=== PATIENT | female | born 1955 | race Caucasian/White ===

== ENCOUNTER → 2017-08-27 17:05 | Outpatient (CLI) | payer OTHER, SELFPAY ==
--- NOTE | 2017-08-27 17:05 | DT_ITS ---
This patient was seen during an EMR downtime August 25, 2017 - September 01, 2017. This patient may have a combination of paper and electronic documentation or all paper documentation. All documentation is viewable within the e-chart portion of [facility] for each patient visit.
[2017-08-27 18:35] LABS: ALB/GLOB Ratio 0.7 RATIO (0.9-2.4); AST(SGOT) 40 U/L (15-37); Alanine Aminotransfer ALT/SGPT 22 U/L (13-56); Albumin, Serum 3.3 g/dL (3.2-5.0); Alkaline Phosphatase 58 U/L (45-117); Anion Gap 10 (5-15); BUN 15 mg/dL (7-18); BUN/Creat Ratio 16.5 RATIO (10-20); Calcium,Total 8.9 mg/dL (8.5-10.1); Chloride 101 mmol/L (98-107); Creatinine, Serum 0.91 mg/dL (0.55-1.02); EST Glomerular Filtration Rate 67 mL/min (>60); Est Glom Filt Rate - Afr Amer 81 mL/min (>60); Globulin 4.6 g/dL (2.2-4.2); Glucose 85 mg/dL (74-106); Protein, Total 7.9 g/dL (6.4-8.2); Sodium Level 137 mmol/L (136-145)
[2017-08-31 19:33] LABS: Hematocrit 39.4 % (37-47); Hemoglobin 12.8 g/dl (12.0-15.0); Lymphocyte % 21.4 % (19-41); Mean Corp Hgb Conc 32.5 g/gl (32-36); Mean Corpuscular Hgb 28.5 pg (27.0-32.0); Mean Corpuscular Volume 87.8 fL (81-99); Neutrophil % 61.5 % (47-70); POSITIVE COUNT NO; POSITIVE DIFFERENTIAL NO; POSITIVE MORPHOLOGY NO; Platelet Count 279 K/mm3 (150-450); RBC Distribution Width CV 13.8 % (11.6-14.6); Red Blood Count 4.49 M/mm3 (4.2-5.4); White Blood Count 8.5 K/mm3 (4.4-11.0)
[2017-08-31 19:34] LABS: Absolute Lymphocyte Count 1.81 X10^3/ul (0.83-4.51); Absolute Neutrophil Count 5.2 X10^3/uL (2.0-7.7); Basophil% 0.6 % (0-1); Monocyte% 9.4 % (0-10)
== END ==
PROVIDERS: Family Provider Family Medicine; PCP Family Medicine; Visit Provider Internal Medicine Rheumatology
DX: L40.59 Other psoriatic arthropathy (principal); L40.8 Other psoriasis; M17.0 Bilateral primary osteoarthritis of knee; M21.40 Flat foot [pes planus] (acquired), unspecified foot; I10 Essential (primary) hypertension; Z79.899 Other long term (current) drug therapy
CPT/HCPCS: 36415; 80053; 85025

== ENCOUNTER → 2017-08-29 15:10 | Outpatient (CLI) | payer OTHER, SELFPAY ==
--- NOTE | 2017-08-29 15:10 | DT_ITS ---
This patient was seen during an EMR downtime August 25, 2017 - September 01, 2017. This patient may have a combination of paper and electronic documentation or all paper documentation. All documentation is viewable within the e-chart portion of [facility] for each patient visit.
== END ==
PROVIDERS: Family Provider Family Medicine; PCP Family Medicine; Visit Provider Internal Medicine Rheumatology
DX: L40.59 Other psoriatic arthropathy (principal); Z79.899 Other long term (current) drug therapy; L40.8 Other psoriasis; M17.0 Bilateral primary osteoarthritis of knee; M21.40 Flat foot [pes planus] (acquired), unspecified foot; I10 Essential (primary) hypertension
CPT/HCPCS: 86480

== ENCOUNTER → 2017-11-06 08:57 | Outpatient (CLI) | payer OTHER, SELFPAY ==
[2017-11-06 10:16] LABS: Absolute Neutrophil Count 6.7 X10^3/uL (2.0-7.7); Basophil# 0.04 X10^3/uL; Basophil% 0.4 % (0-1); Eosinophil# 0.16 X10^3/uL; Eosinophils% 1.7 % (0-5); Hematocrit 45.6 % (37-47); Hemoglobin 14.7 g/dl (12.0-15.0); Lymphocyte % 18.3 % (19-41); Mean Corp Hgb Conc 32.2 g/gl (32-36); Mean Corpuscular Hgb 29.4 pg (27.0-32.0); Mean Corpuscular Volume 91.2 fL (81-99); Monocyte# 0.67 X10^3/uL; Monocyte% 7.2 % (0-10); Neutrophil # 6.71 X10^3/uL (2.7-7.7); Neutrophil % 72.2 % (47-70); Platelet Count 220 K/mm3 (150-450); RBC Distribution Width CV 15.9 % (11.6-14.6); RBC Distribution Width SD 52.9 fl (35.1-43.9); White Blood Count 9.3 K/mm3 (4.4-11.0)
[2017-11-06 10:18] LABS: POSITIVE COUNT NO; POSITIVE DIFFERENTIAL NO; POSITIVE MORPHOLOGY NO
[2017-11-06 10:23] LABS: AST(SGOT) 16 U/L (15-37); Alanine Aminotransfer ALT/SGPT 29 U/L (13-56); Albumin, Serum 3.9 g/dL (3.2-5.0); Alkaline Phosphatase 65 U/L (45-117); Anion Gap 8 (5-15); BUN 22 mg/dL (7-18); BUN/Creat Ratio 23.2 RATIO (10-20); Calcium,Total 9.3 mg/dL (8.5-10.1); Chloride 102 mmol/L (98-107); Creatinine, Serum 0.95 mg/dL (0.55-1.02); EST Glomerular Filtration Rate 63 mL/min (>60); Est Glom Filt Rate - Afr Amer 77 mL/min (>60); Globulin 4.1 g/dL (2.2-4.2); Glucose 90 mg/dL (74-106); Potassium 3.9 mmol/L (3.5-5.1); Sodium Level 138 mmol/L (136-145)
== END ==
PROVIDERS: Family Provider Family Medicine; PCP Family Medicine; Visit Provider Internal Medicine Rheumatology
DX: L40.59 Other psoriatic arthropathy (principal); L40.8 Other psoriasis; M17.0 Bilateral primary osteoarthritis of knee; M21.40 Flat foot [pes planus] (acquired), unspecified foot; I10 Essential (primary) hypertension; Z79.899 Other long term (current) drug therapy
CPT/HCPCS: 36415; 80053; 85025

== ENCOUNTER → 2018-01-08 12:53 | Outpatient (CLI) | payer OTHER, SELFPAY ==
--- NOTE | 2018-01-08 12:54 | CT_ITS ---
STUDY: CT CHEST/THORAX WITHOUT CONTRAST REASON FOR EXAM: Female, 62 years old. Lung nodule follow-up. RADIATION DOSAGE (If Supplied By Facility): CTDIvol = ( 19.77 ) mGy, DLP = ( 706.29 ) mGycm TECHNIQUE: Transaxial imaging was performed without the administration of intravenous contrast material. Multiplanar coronal and sagittal images were reformatted. # of Images: 821 Individualized dose optimization techniques were used for this CT. COMPARISON: CT chest/thorax without contrast March 27, 2017. FINDINGS: Postsurgical changes are now seen in the lateral left apex, including a radiodense suture line in the anterolateral left upper lobe. The spiculated, pleural-based mass noted previously in that area is no longer present. Lobulated and mildly spiculated posterior lateral right upper lobe mass has increased to 1.65 x 1.75 x 1.6 cm. Spiculated mass in the superior margin of the right middle lobe also has increased to 1.75 x 1.7 x 0.75 cm. There is 0.75 cm diameter slightly spiculated nodule also now seen abutting the medial pleural surface of the right middle lobe on series 4 image 60, series 602 image 121. In the posterior medial right upper lobe (series 4 image 57, series 602 image 186) a pleural-based 10 x 6 x 8.5 mm lesion with a coarse posterior calcification is stable. A 5 x 6 x 12.5 mm mm spiculated nodule in the posterior medial right lower lobe on series 4 image 65, series 602 images 192-198 is grossly stable. Immediately adjacent to this are spiculated 7 and 5 mm nodules that are new. Inferior to these is a new 8 x 3.5 mm mildly spiculated nodule in the posterior medial periphery of the right lower lobe just touching the posterior pleural surface. There is no demonstrated pleural abnormality. Normal heart size. There are calcifications of the coronary arteries. Moderately defined, grossly stable 2.75 x 1.25 x 1.6 cm structure anterior to the left mainstem bronchus (series 2 image 44, series 602 image 151) is a density of less than 5 Hounsfield units, suggesting this is a pericardial reflection rather than adenopathy. A second pericardial reflection is seen posterior to the ascending aorta and medial to the superior vena cava in the precarinal tissues. There is no mediastinal adenopathy. Normal hilar regions. Normal unenhanced pulmonary arteries. There is stable mild atherosclerotic calcification of the aortic arch. There are multi-level degenerative changes of the thoracic spine. There is a 1.8 cm rim calcified gallstone. No mural thickening of the gallbladder nor pericholecystic fluid to indicate acute cholecystitis. CT/Chest without Contrast IMPRESSION: 1. Post surgical changes now seen in the lateral left apex. The pleural-based, spiculated mass noted previously in that area is no longer present. 2. The 2 dominant lesions seen previously in the right lung have increased in size, as described above. Additional nodular lesions are also seen in the mid basilar posterior right lower lobe, as described, consistent with new foci of malignancy. 3. No overt adenopathy. There are stable fluid density structures in the precarinal and proximal peribronchial tissues that are presumably pericardial reflections. 4. Gallstone again noted. No CT sign of acute cholecystitis. Electronically Signed: Roger Estrada MD at 16:32 EDT , Service support ,
== END ==
PROVIDERS: Family Provider Family Medicine; PCP Family Medicine; Referring Provider Internal Medicine Critical Care Medicine; Visit Provider Internal Medicine Critical Care Medicine
DX: R91.8 Other nonspecific abnormal finding of lung field (principal)
CPT/HCPCS: 71250

== ENCOUNTER → 2019-01-07 | Outpatient (CLI) | payer OTHER, SELFPAY ==
--- NOTE | 2019-01-07 10:44 | CT_ITS ---
STUDY: CT CHEST WITHOUT CONTRAST REASON FOR EXAM: Female, 63 years old. Lung nodule follow-up RADIATION DOSAGE (If Supplied By Facility): CTDIvol = ( 19.10 ) mGy, DLP = ( 677.76 ) mGycm TECHNIQUE: Transaxial imaging was performed without the administration of intravenous contrast material. Multiplanar coronal and sagittal images were reformatted. Individualized dose optimization techniques were used for this CT. COMPARISON: 01/08/2018 FINDINGS: Previous described fibrotic scarring in the left upper lobe has become less conspicuous and more organized since the previous study. There is nonspecific pleural thickening in both hemithoraces. Previous described 1.6 x 1.7 x 1.6 cm nodule in the right upper lobe now measures only 1.3 x 1.1 x 1.2 cm. A right middle lobe nodule measuring 1.7 x 1.7 x 0.7 cm has decreased to 1.06 x 1.5 x 0.7 cm. Noncalcified nodules in the medial aspect of the right lower lobe also decreased in size and now measure less than 5 mm. There is no new acute pulmonary process, no new suspicious noncalcified mass or nodule. Soft tissue windows show normal-appearing thyroid gland. There are scattered subcentimeter axillary and mediastinal lymph nodes. Calcified coronary vessels noted. No pleural or pericardial effusions. There are multi-level degenerative changes of the thoracic spine. Limited cuts through the upper abdomen multiple gallstones. CT/Chest without Contrast IMPRESSION: Previously described noncalcified nodules in both lung garcia has significantly decreased in size since the previous study suggesting positive response to therapy. No new suspicious noncalcified mass or nodule, organized infiltrate or effusion. Stable scattered axillary mediastinal lymph nodes Calcified coronary vessels Degenerative bony changes Gallstones Electronically Signed: Roger Wallace MD at 10:57 EDT , Service support ,
--- NOTE | 2019-01-07 16:03 | PFTCOMP_ITS ---
COMPLETE PULMONARY FUNCTION TEST INTERPRETATION Brief HPI: Patient is a 63 year old female, currently under the care of myself, who presents to [facility] for complete pulmonary function tests secondary to diagnosis of lung nodule. Respiratory therapist reports good effort and reproducible results. Interpretation: Forced expiration spirometry shows no large airways obstructive ventilatory defect with an FEV1 of 86% predicted. There is no significant bronchodilator response by strict ATS criteria. Spirograms are of good quality and plateau normally. The respiratory flow volume loop shows a normal pattern. Lung volumes by body plethysmography show a normal total lung capacity at 4.59 L, 94% predicted. All other lung volumes are within normal limits. Diffusion capacity by carbon monoxide is normal at 82% predicted. The airway resistance is normal. No previous pulmonary function tests were available for review. Impression: These pulmonary function tests are within normal limits.
== END | disposition home or self-care (01) ==
LOC: PSN 09:56
PROVIDERS: Family Provider Family Medicine; PCP Family Medicine; Referring Provider Internal Medicine Critical Care Medicine; Visit Provider Internal Medicine Critical Care Medicine
DX: M25.50 Pain in unspecified joint (principal); R91.1 Solitary pulmonary nodule; Z98.890 Other specified postprocedural states
CPT/HCPCS: 71250; 94060; 94726; 94729

== ENCOUNTER → 2019-08-24 16:18 | Outpatient (CLI) | payer OTHER, SELFPAY ==
[2019-01-14 05:59] VITALS: BMI 42.0
[2019-08-27 16:08] LABS: Red Blood Cell Count Test/G6PD 4.95 x10E6/uL (3.77-5.28)
[2019-08-28 14:38] LABS: G6PD Quant Test 283 (146-376)
== END ==
PROVIDERS: PCP Family Medicine; Referring Provider Internal Medicine Rheumatology; Visit Provider Internal Medicine Rheumatology
DX: L40.59 Other psoriatic arthropathy (principal); L40.8 Other psoriasis; M17.0 Bilateral primary osteoarthritis of knee; M21.40 Flat foot [pes planus] (acquired), unspecified foot; M50.30 Other cervical disc degeneration, unspecified cervical region; I10 Essential (primary) hypertension; I25.10 Atherosclerotic heart disease of native coronary artery without angina pectoris; Z79.899 Other long term (current) drug therapy
CPT/HCPCS: 36415; 82955

== ENCOUNTER → 2020-06-27 15:18 | Outpatient (CLI) | payer OTHER, SELFPAY ==
[2019-01-14 05:59] VITALS: BMI 42.0
[2020-06-27 18:08] LABS: Absolute Neutrophil Count 4.7 X10^3/uL (2.0-7.7); Basophil# 0.05 X10^3/uL; Basophil% 0.7 % (0-1); Eosinophil# 0.26 X10^3/uL; Eosinophils% 3.4 % (0-5); Hematocrit 38.9 % (37-47); Hemoglobin 12.1 g/dL (12.0-15.0); Lymphocyte % 23.5 % (19-41); Mean Corp Hgb Conc 31.1 g/dL (32-36); Mean Corpuscular Volume 86.8 fL (81-99); Mean Platelet Vol. 11.4 fl (6.2-12.0); Monocyte# 0.82 X10^3/uL; Monocyte% 10.7 % (0-10); NRBC Flagged by Analyzer 0 % (0-5); Neutrophil # 4.71 X10^3/uL (2.7-7.7); Neutrophil % 61.6 % (47-70); Platelet Count 120 K/mm3 (150-450); RBC Distribution Width CV 13.1 % (11.6-14.6); Red Blood Count 4.48 M/mm3 (4.2-5.4); White Blood Count 7.7 K/mm3 (4.4-11.0)
[2020-06-27 18:30] LABS: ALB/GLOB Ratio 0.7 RATIO (0.9-2.4); AST(SGOT) 12 U/L (15-37); Alanine Aminotransfer ALT/SGPT 16 U/L (13-56); Albumin, Serum 3.2 g/dL (3.2-5.0); Alkaline Phosphatase 60 U/L (45-117); Anion Gap 5 (5-15); BUN 15 mg/dL (7-18); BUN/Creat Ratio 19.9 RATIO (10-20); Calcium,Total 9.4 mg/dL (8.5-10.1); Chloride 103 mmol/L (98-107); Creatinine, Serum 0.75 mg/dL (0.55-1.02); EST Glomerular Filtration Rate 82 mL/min (>60); Est Glom Filt Rate - Afr Amer 99 mL/min (>60); Globulin 4.8 g/dL (2.2-4.2); Glucose 80 mg/dL (74-106); Potassium 3.2 mmol/L (3.5-5.1); Sodium Level 136 mmol/L (136-145)
[2020-07-03 20:07] LABS: QNTFERON TB Mitogen Value > 10.00 IU/mL (.); QNTFERON TB Nil Value 0.13 IU/mL (.); QNTFERON TB1+ Ag Value 0.14 IU/mL (.); QNTFERON TB2+ Ag Value 0.13 IU/mL (.)
[2020-07-03 21:09] LABS: QNTIFERON TB Positive Criteria Negative (Negative)
== END ==
PROVIDERS: PCP Family Medicine; Referring Provider Internal Medicine Rheumatology; Visit Provider Internal Medicine Rheumatology
DX: L40.59 Other psoriatic arthropathy (principal); L40.8 Other psoriasis; M17.0 Bilateral primary osteoarthritis of knee; M21.40 Flat foot [pes planus] (acquired), unspecified foot; M50.30 Other cervical disc degeneration, unspecified cervical region; I10 Essential (primary) hypertension; I25.10 Atherosclerotic heart disease of native coronary artery without angina pectoris; Z79.899 Other long term (current) drug therapy
CPT/HCPCS: 36415; 80053; 85025; 86480

== ENCOUNTER → 2021-12-26 | Outpatient (CLI) | payer OTHER, SELFPAY ==
[2021-12-26 10:17] LABS: Absolute Lymphocyte Count 1.43 X10^3/uL (0.83-4.51); Absolute Neutrophil Count 4.6 X10^3/uL (2.0-7.7); Basophil# 0.05 X10^3/uL; Basophil% 0.7 % (0-1); Eosinophil# 0.33 X10^3/uL; Eosinophils% 4.6 % (0-5); Hematocrit 43.3 % (37-47); Hemoglobin 13.9 g/dL (12.0-15.0); Lymphocyte # 1.43 X10^3/ul (0.83-4.51); Lymphocyte % 20.1 % (19-41); Mean Corp Hgb Conc 32.1 g/dL (32-36); Mean Corpuscular Hgb 29.8 pg (27.0-32.0); Mean Corpuscular Volume 92.9 fL (81-99); Mean Platelet Vol. 13.5 fl (6.2-12.0); Monocyte# 0.72 X10^3/uL; Monocyte% 10.1 % (0-10); NRBC Flagged by Analyzer 0 % (0-5); Neutrophil # 4.58 X10^3/uL (2.7-7.7); Neutrophil % 64.2 % (47-70); Platelet Count 135 K/mm3 (150-450); RBC Distribution Width CV 13.1 % (11.6-14.6); RBC Distribution Width SD 44.6 fl (35.1-43.9); Red Blood Count 4.66 M/mm3 (4.2-5.4); White Blood Count 7.1 K/mm3 (4.4-11.0)
[2021-12-26 10:58] LABS: ALB/GLOB Ratio 0.8 RATIO (0.9-2.4); AST(SGOT) 30 U/L (15-37); Alanine Aminotransfer ALT/SGPT 43 U/L (13-56); Albumin, Serum 3.4 g/dL (3.2-5.0); Alkaline Phosphatase 57 U/L (45-117); Anion Gap 7 (5-15); BUN 13 mg/dL (7-18); BUN/Creat Ratio 14.4 RATIO (10-20); Calcium,Total 9.4 mg/dL (8.5-10.1); Chloride 107 mmol/L (98-107); EST Glomerular Filtration Rate 66 mL/min (>60); Est Glom Filt Rate - Afr Amer 80 mL/min (>60); Glucose 94 mg/dL (74-106); Potassium 3.5 mmol/L (3.5-5.1); Protein, Total 7.4 g/dL (6.4-8.2); Sodium Level 140 mmol/L (136-145)
== END | disposition home or self-care (01) ==
LOC: MTLAB 07:45
PROVIDERS: Referring Provider Internal Medicine Rheumatology; Visit Provider Internal Medicine Rheumatology
DX: L40.59 Other psoriatic arthropathy (principal); L40.8 Other psoriasis; M17.0 Bilateral primary osteoarthritis of knee; M21.40 Flat foot [pes planus] (acquired), unspecified foot; M50.30 Other cervical disc degeneration, unspecified cervical region; I10 Essential (primary) hypertension; I25.10 Atherosclerotic heart disease of native coronary artery without angina pectoris; Z79.899 Other long term (current) drug therapy
CPT/HCPCS: 36415; 80053; 85025

== ENCOUNTER → 2022-06-03 | Outpatient (CLI) | payer OTHER, SELFPAY | END | disposition home or self-care (01) | PROVIDERS: Visit Provider Otolaryngology | DX: J32.8 Other chronic sinusitis (principal) | CPT/HCPCS: 87070; 87205 ==

== ENCOUNTER → 2023-05-29 | Outpatient (CLI) | payer OTHER, SELFPAY ==
--- OUTSIDE RECORDS SUMMARY | 2023-05-29 19:46 | XMS RPT_ITS | CCD ---
Author Name Unknown Address [address] [place] [address] Organization [facility] Care Team Providers Care Control Clerk Name Role Phone Zenia Guzman Unavailable Unavailable Ian Spence Unavailable Jesus DIRECTOR SUPPLIER QUALITY, Zenia Mariah Unavailable Unavaila ble Jesus DIRECTOR SUPPLIER QUALITY, Zenia Mariah Unavailable Unavaila ble NIRAULA, BALJEET Unavailable Unavailable PROVIDER, UNKNOWN Unavailable Unavailable Dowd, Hamlet Unavailable Unavailable NIRAULA, BALJEET Unavailable Unavailable PROVIDER, UNKNOWN Unavailable Unavailable Nile Hamlet Unavailable Unavailable Nile Hamlet Unavailable Unavailable PROVIDER, UNKNOWN Unavailable Unavailable Nile Hamlet Unavailable Unavailable PROVIDER, UNKNOWN Unavailable Unavailable NIRAULA, BALJEET Unavailable Unavailable Nile Hamlet Unavailable Unavailable PROVIDER, UNKNOWN Unavailable Unavailable NIRAULA, BALJEET Unavailable Unavailable NIRAULA, BALJEET Unavailable Unavailable Nile Hamlet Unavailable Unavailable PROVIDER, UNKNOWN Unavailable Unavailable Nile Hamlet Unavailable Unavailable PROVIDER, UNKNOWN Unavailable Unavailable DANEIL EARL L. Unavailable Unavailable Nile Hamlet Unavailable Unavailable PROVIDER, UNKNOWN Unavailable Unavailable DANIEL EARL LShante Unavailable Unavailable YorkSharleneZenia L Unavailable Unavailable Jesus DIRECTOR SUPPLIER QUALITY, Zenia Mariah Unavailable Unavaila ble Yensho DIRECTOR SUPPLIER QUALITY, Lorena A Unavailable Unavailab le Jesus DIRECTOR SUPPLIER QUALITY, Zenia Mariah Unavailable Unavaila ble TIERRA BYERS MD Attending Unavailable EMMANUEL SARGENT PA-C Primary Care Unavailable TIERRA BYERS MD Attending Unavailable EMMANUEL SARGENT PA-C Primary Care Unavailable MAKI CAZARES Admitting Unavailable MAKI CAZARES Attending Unavailable MAKI CAZARES Primary Care Unavailable SARGENT, EMMANUEL PAC Consulting Unavailable SARGENT, EMMANUEL PAC Referring Unavailable PROVIDER, UNKNOWN Consulting Unavailable TIERRA BYERS MD Admitting Unavailable TIERRA BYERS MD Attending Unavailable TIERRA BYERS MD Primary Care Unavailable SARGENT, EMMANUEL PAC Consulting Unavailable PROVIDER, UNKNOWN Consulting Unavailable TIERRA BYERS MD Admitting Unavailable TIERRA BYERS MD Attending Unavailable TIERRA BYERS MD Primary Care Unavailable SARGENT, EMMANUEL PAC Consulting Unavailable PROVIDER, UNKNOWN Consulting Unavailable SARGENT, EMMANUEL PAC Referring Unavailable SARGENT, EMMANUEL PAC Consulting Unavailable ANETA ESPINAL MD Admitting Unavailable ANETA ESPINAL MD Attending Unavailable ANETA ESPINAL MD Primary Care Unavailable PROVIDER, UNKNOWN Consulting Unavailable Sargent JUNE, Emmanuel J Unavailable [phone] Jake HART, Dr. Eran Koo Unavailable Jordy HART, Dr. Sosa Unavailable Sandoval HART, Dr. Fuentes Unavailable [phone] Rolnad HART, Dr. Ata Denis Unavailable [phone] Corey HART, Lg Aaron Unavailable Jennifer GREENFIELD, Jennifer Unavailable Unavailable Gogopam (scribe), Hemanta Unavailable Unavaila ble Matthew DIRECTOR SUPPLIER QUALITY, Radha Unavailable Unavailable Nile HART, Hamlet Denis Unavailable Saud WATKINS, Gilberto Dupont Unavailable Saud ZEPEDA, Eva L Unavailable Unavail able Mary Ellen Law MA Unavailable Unavailable Oren DIRECTOR SUPPLIER QUALITY, Betty Unavailable Unavailable Em ZEPEDA, Sharmin Denis Unavailable Unavaila ble Marthey DIRECTOR SUPPLIER QUALITY, Teresa Unavailable Unavailable Goldberg DIRECTOR SUPPLIER QUALITY, Selena Unavailable Unavailable Mutersbaugh DIRECTOR SUPPLIER QUALITY, Krissy K Unavailable Unavai dana Mackay PA-C, Susan J Unavailable Timbo (Scribe), Estevan Unavailable Unavailab le Meg DIRECTOR SUPPLIER QUALITY, Octavia Pete Unavailable Unavailab le Robeline DIRECTOR SUPPLIER QUALITY, Alysha Unavailable Unavailab le Wengerwhitley DIRECTOR SUPPLIER QUALITY, [place] Unavailable Unavailabl e Santhosh DIRECTOR SUPPLIER QUALITY, Elizabeth Rao Unavailable Unavaila ble Zaugg DIRECTOR SUPPLIER QUALITY, Zenia Unavailable Unavailable Unavailable Unavailable Allergies Allergy Classification Reported Allergen(s) Allergy Type Date of Onset Reaction(s) Facility (17 sources) penicillin v drug allergy 7 when she was young, anaphylaxis [facility] Work Phone: (1 source) Penicillin Drug Allergy [facility] Repository (1 source) STATINS ([facility]-COA REDUCTASE INHIBITORS) Drug allergy (disorder) [facility] Repository (2 sources) [facility] (2 sources) Penicillin V Drug Allergy Rash, Swelling [facility]; [facility] Medications Current Medications Medication Drug Class(es) Dates Sig (Normalized) Sig (Original) amiodarone hydrochloride 200 mg oral tablet (2 sources) Antiarrhythmic amiodarone 200 mg tablet ; twice daily with meals (200 mg) amLODIPine 10 mg oral tablet (2 sources) Dihydropyridine [facility] amLODIPine 10 mg tablet ; daily (10 mg) calcium citrate 950 mg oral tablet (2 sources) Calcium Citrate 950 MG Oral Tablet ; (950 MG) folic acid 1 mg oral tablet (13 sources) Start: 04-03-2023 folic acid 1 mg tablet ; 2 (two) Tablet qd for 0 days Quantity: 180 {Tablet} Refills: 0 Ordered: 03-Apr-2023 JUNE Sargent Start: 03-Apr-2023 Comments: Mail order. Completed/Discontinued Medications Medication Drug Class(es) Dates Sig (Normalized) Sig (Original) acetaminophen 325 mg / HYDROcodone bitartrate 5 mg oral tablet (2 sources) Opioid Agonist take 1 tablet by sam th every four hours as needed HYDROCODONE-ACETAMI NOPHEN, 5-325MG (Oral Tablet) ; 1 every four hours as needed (5-325 MG) Status: Inactive Comments: Medication taken as needed. Problems Active Problems Problem Classification Problem Date Documented Date Episodic/Chronic Acute bronchitis (8 sources) Acute bronchitis; Translations: [Acute bronchitis, unspecified] 04-09-2018 Episodic Administrative/social admission (4 sources) Repeated prescription; Translations: [Encounter for issue of repeat prescription] 08-21-2018 Episodic Allergic reactions (3 sources) Allergy status to penicillin; Translations: [Allergy status to penicillin] Onset: 05-23-2017 Episodic Cardiac dysrhythmias (13 sources) Unspecified atrial fibrillation; Translations: [Atrial fibrillation] Onset: 06-27-2017 08-27-2018 Chronic Cardiac dysrhythmias (6 sources) Tachycardia; Translations: [Tachycardia, unspecified] 10-18-2022 Episodic Coronary atherosclerosis and other heart disease (2 sources) Atherosclerotic heart disease of [place] coronary artery without angina pectoris; Translations: [Athscl heart disease of [place] coronary artery w/o ang pctrs] Onset: 05-23-2017 Chronic Disorders of lipid metabolism (20 sources) Hyperlipidemia; Translations: [Hyperlipidemia, unspecified] 10-18-2022 Chronic Past or Other Problems Problem Classification Problem Date Documented Date Episodic/Chronic Unclassified (2 sources) Family history of other diseases of the respiratory system; Translations: [Family history of other diseases of the respiratory system] Onset: 05-23-2017 Episodic Unclassified (2 sources) Rash - The onset of the rash has been sudden and has been occurring in a persistent pattern for 6 days. The course has been decreasing (Patient reports that her eye feels better today). The rash is characterized as red and raised above the skin. The rash was first seen on the scalp and the face. It spread to the face (over right forehead and eye). There has been associated pain and erythema, while there has been no associated itching or edema. There has been associated fatigue, while there has been no chills, fever, itching or mucous membrane lesions. Note for Rash : Patient went to the ER on Friday and was diagnosed with shingles. She has been taking acyclovir and following up with her conservation specialist. The conservation specialist suggested that she may need an extension on her antiviral treatment. 11-08-2022 Unclassified (2 sources) Leg swelling - The leg swelling has been occurring for 1 week. The course has been constant. The leg swelling is described as severe. The symptoms have been associated with shortness of breath. Note for Leg swelling : Patient states that within the last week the swelling seemed to begin her lower extremities bilaterally and began in her periorbital region over the last several days; patient states she has a history of CAD with stent placement within the last 5-7 years and tried to get in with her playground official but was unable to be seen for several weeks; home BP showed a diastolic pressure of 104 last PM 10-03-2022 Unclassified (2 sources) Cold Symptoms - Symptoms include nasal congestion, headache and facial pain, but do not include sneezing, runny nose, non-purulent sputum, purulent discharge, ear pain, ear fullness, sore throat, scratchy throat, hoarseness, dry cough, productive cough, wheezing, fever, chills or general malaise. The onset was gradual 1 month(s) ago. The symptoms occur constantly. The patient describes this as moderate in severity and unchanged. Current treatment includes home remedies. Risk factors do not include child in daycare or smoking. The patient has not been exposed to an individual with a cough, an individual with an upper respiratory infection, an individual with similar symptoms, an individual with strep or secondhand smoke. Patient denies history of seasonal allergies, recurrent sinusitis, recurrent strep pharyngitis, asthma, tonsillectomy or recurrent ear infections. Note for Upper respiratory infection : eyes wateringtried all OVC stuffsleeping up right 05-16-2022 Unclassified (2 sources) Cold Symptoms - Symptoms include nasal congestion, but do not include sneezing, runny nose, ear pain, ear fullness, sore throat, scratchy throat, dry cough, productive cough, fever, chills, general malaise or headache. The onset was sudden 4 week(s) ago. The symptoms occur constantly. The patient describes this as moderate in severity and unchanged. The patient is not currently being treated for this problem. Medical history includes seasonal allergies and recurrent sinusitis. Note for Upper respiratory infection : Patient reports that her symptoms started with runny nose, sneezing, nasal congestion, and cough after her neighbor cut their hay field. She took OTC allergy medications and her symptoms resolved except nasal congestion and sinus pressure.She has not had any allergy medication for the past 2 weeks. 01-08-2022 Unclassified (2 sources) Well adult female - The patient feels well with no complaints, has decreased energy level and is sleeping poorly. The patient has poor nutrition (Admits to eating whatever she wants.) and takes supplemental vitamins. The patient does not exercise. The patient sleeps 6 hours per night. Note for Well adult female : Patient has labs to be reviewed today.Last Pap was normal in 2019.Last mammogram - 2019Last colonoscopy - 2017 05-31-2021 Unclassified (2 sources) Cold Symptoms - Symptoms include nasal congestion, runny nose, productive cough, fever (100.3 this am), headache and facial pain, but do not include ear pain, sore throat, dry cough, wheezing, chills or general malaise. The onset was gradual 10 day(s) ago (per pt 1.5 weeks ago). The symptoms occur constantly. The patient describes this as mild and worsening (coughing more). Current treatment includes non-prescription cold medication (advil cold and sinus- 7 am last dose mucins). Risk factors do not include smoking. The patient has not been exposed to an individual with a cough, an individual with an upper respiratory infection, an individual with similar symptoms, an individual with strep or secondhand smoke. Medical history includes seasonal allergies, but patient denies history of recurrent sinusitis, recurrent strep pharyngitis, asthma, tonsillectomy or recurrent ear infections. 03-19-2021 Unclassified (2 sources) bruised leg - pt noticed it last night-- when she rolled over last night in bed it hurt pretty bad and so this am she looked at she noticed a big bruise- right lower leg it also has a knot in it that is tender to the touch also swelledpt said she doesn't remember hitting it off of anything or any known injurypt is concerned and just wanted to make sure its not a blood clot 07-05-2020 Unclassified (2 sources) Pre-operative clearance - Surgical procedure(s) planned: other (eye surgery). Date of procedure: (04/26/2020) Surgeon: (Dr. Mahoney) and Location of procedure: ([facility]) There have been no problems with general anesthesia or blood/blood products. Prosthetics include eye glasses. 04-18-2020 Unclassified (2 sources) Cold Symptoms - Symptoms include nasal congestion (at night), runny nose (has post nasal drainage), productive cough (was green sputum, now is elder in color), general malaise (will have sweats that can occur in the evening and during the night), headache and facial pain, but do not include ear pain (did have for 2 days), sore throat (did have but not currently.) or fever (possibly did have fever in the beginning.). The onset was 11 day(s) ago. The symptoms occur constantly. The patient describes this as moderate in severity and improving (is feeling better some). Current treatment includes an oral decongestant (Mucinex DM) and Cough drops. Risk factors do not include smoking. Medical history includes seasonal allergies, but patient denies history of asthma or tonsillectomy. 04-09-2018 Unclassified (2 sources) Well adult female - The patient feels well with no complaints, has decreased energy level and is sleeping well. The patient has inadequate caloric intake and takes no supplemental vitamins & iron. The patient does not exercise. The patient sleeps 6 hours per night. Note for Well adult female : DANNY 08/28/2016 cmp cbc 12/26/2016needs pap, would like to go to [facility] or [facility] question about kidney levels from prior bloodwork on 12/26/2016 01-02-2017 Unclassified (2 sources) follow up - Patient was seen by Dr. Dowd, on 04/10/16, for thoracic myofascial strain. Patient was advised to try the Whole30 diet, use heat, and anti-inflammatories. Patient is here today to follow up. Patient reports her back is slowly improving. The intensity is not as bad but she still struggles with some pain. She continues to use heat. Patient has also been trying hard to stick with the Whole30 diet and she does notice some improvement with inflammation in her joints. Patient's weight is down 7# since her last visit. 05-02-2016 Unclassified (2 sources) Back pain - The onset of the back pain has been acute and has been occurring in an intermittent pattern for 6 days. The course has been recurrent. The pain is located in the lumbar area (to the right side). Note for Back pain : Has sharp pain with deep breaths and certain movements. 04-10-2016 Unclassified (2 sources) Cold Symptoms - Symptoms include nasal congestion, dry cough, headache and facial pain, but do not include ear pain, sore throat, hoarseness, fever or chills. The onset was gradual 2 month(s) ago. The symptoms occur constantly. The patient describes this as moderate in severity and unchanged. Current treatment includes non-prescription cold medication, nasal corticosteroids and an oral decongestant. Risk factors do not include smoking. The patient has not been exposed to secondhand smoke. Patient denies history of seasonal allergies. 10-16-2015 Unclassified (2 sources) Preoperative Clearance - Surgical procedure(s) planned: other (right total knee replacement.). Date of procedure: (08-07-15) Surgeon: (Dr Eran Fritz) and Location of procedure: ([facility]) There have been no problems with general anesthesia or blood/blood products. Prosthetics include eye glasses. Note for Pre-operative clearance : History of atrial fibrillation in the hospital, currently wearing 30 day monitor, but no recent known history of recurrence. 07-31-2015 Unclassified (1 source) Follow up consultation - The patient is here to follow-up after hospitalization ([place] [facility] Dx: Left knee replacement) on : (12/29/14-01/06/15.). Current symptoms include weakness (decrease in stamina). Note for Consultation follow-up : Patient was diagnosed with Atrial Fibrillation on her last day in the hospital. Patient was seen by Dr. Fritz on 01/06/15 and has another follow up tomorrow. Patient is doing physical therapy 3 times a week. 01-23-2015 Unclassified (1 source) [ADDITIONAL REASON] Transition into care - The patient is transitioning into care from a halfway facility and a summary of care was reviewed . 01-23-2015 Unclassified (1 source) New Patient - Patient is a former patient of Dr. Bonilla. 05-17-2014 Unclassified (2 sources) [ADDITIONAL REASON] Hand pain - The onset of the hand pain has been sudden following no specific incident and has been occurring in a persistent pattern for 1 month. The course has been rapidly worsening. The hand pain is characterized as a moderate to severe dull aching. The hand pain is described as being located in the entire hand. The hand pain is aggravated by physical activity, work duties, making a fist, extention of the finger and flexion of the finger. The pain has been relieved by rest. The symptoms have been associated with joint swelling, painful ROM, decreased ROM, difficulty opening doors, difficulty turning keys in the ignition, difficulty with shaking hands, difficulty with fine motor skills, difficulty with lifting, difficulty with grasping, difficulty with pinching and other joint complaints (bilateral knees and elbows). Previous diagnostic tests have included plain radiographs. Previous evaluations have been completed by an orthopaedic surgeon. There has been no previous occupational therapy. There have been no previous surgeries. There has been no use of assistive devices. Note for Hand pain : Patient received Euffexxa injections in her knee's by [facility] in March. 05-17-2014 Unclassified (1 source) [ADDITIONAL REASON] Transition into care - The patient is transitioning into care from another physician and a summary of care was reviewed . 05-17-2014 Unclassified (1 source) Transition into care - The patient is transitioning into care from a halfway facility and a summary of care was reviewed . 01-23-2015 Unclassified (1 source) [ADDITIONAL REASON] Follow up consultation - The patient is here to follow-up after hospitalization ([place] Dx: Left knee replacement) on : (12/29/14-01/06/15.). Current symptoms include weakness (decrease in stamina). Note for Consultation follow-up : Patient was diagnosed with Atrial Fibrillation on her last day in the hospital. Patient was seen by Dr. Fritz on 01/06/15 and has another follow up tomorrow. Patient is doing physical therapy 3 times a week. 01-23-2015 Unclassified (1 source) Transition into care - The patient is transitioning into care from another physician and a summary of care was reviewed . 05-17-2014 Unclassified (1 source) [ADDITIONAL REASON] New Patient - Patient is a former patient of Dr. Bonilla. 05-17-2014 Results Test Name Value Interpretation Reference Range Facil ity Vital Signs Date Time Vital Sign Value Performing Clinician Dylan bryant 11-08-2022 13:05-0400 Body height 158.12 cm Jennifer Rodriguez [facility], [facility].; [facility] 11-08-2022 13:05-0400 Body mass index (BMI) [Ratio] 47.72 kg/m2 Jennifer Rodriguez [facility], [facility].; [facility] 11-08-2022 13:05-0400 Body surface area Derived from formula 2.15 m2 Jennifer Rodriguez MA [facility], [facility].; [facility] 11-08-2022 13:05-0400 Body weight 119.3 kg [facility] 11-08-2022 13:05-0400 Diastolic blood pressure 72 mm[Hg] Jennifer Rodriguez [facility] Encounters Encounter Date Encounter Type Care Provider Facility Start: 11-21-2022 End: 11-22-2022 ambulatory EMMANUEL PAC SARGENT [facility] Start: 11-08-2022 End: 11-08-2022 Office outpatient visit 15 minutes Emmanuel Sargent PA-C [facility] Start: 11-07-2022 End: 11-07-2022 Telephone follow-up Emmanuel [facility]argent PA-C [facility] Start: 11-04-2022 End: 11-04-2022 Emergency department patient visit MAKI CAZARES [facility] Start: 10-22-2022 End: 10-22-2022 ambulatory TIERRA BYERS MD Facility:A Start: 10-18-2022 ambulatory TIERRA BYERS MD Facility :A Start: 10-18-2022 End: 10-18-2022 Office outpatient visit 25 minutes Emmanuel Sargent PA-C [facility]. Start: 10-17-2022 End: 10-17-2022 ambulatory TIERRA HART [facility] Start: 10-04-2022 End: 10-04-2022 Medication Emmanuel Sargent PA-C [facility] Start: 10-03-2022 End: 10-03-2022 Office outpatient visit 15 minutes Emmanuel Sargent PA-C [facility] Start: 06-10-2022 End: 06-10-2022 Medication Emmanuel Sargent PA-C [facility] Start: 06-03-2022 End: 06-03-2022 ambulatory TIERRA HART [facility] Start: 05-16-2022 End: 05-16-2022 Office outpatient visit 15 minutes Emmanuel Sargent PA-C Work Phone: [facility] Start: 01-08-2022 End: 01-08-2022 Office outpatient visit 15 minutes Emmanuel Sargent PA-C Work Phone: [facility] Start: 10-23-2021 End: 10-23-2021 Office outpatient visit 25 minutes Emmanuel Sargent PA-C Work Phone: [facility] Start: 05-31-2021 End: 05-31-2021 Patient encounter procedure Emmanuel Sargent PA-C Work Phone: [facility]; [facility] Start: 05-31-2021 End: 05-31-2021 Periodic preventive med est patient 65yrs& older Emmanuel Sargent PA-C Work Phone: [facility] Start: 05-23-2021 End: 05-23-2021 Orders Emmanuel Sargent PA-C Work Phone: [facility] Start: 05-16-2021 End: 05-16-2021 Orders Emmanuel Sargent PA-C Work Phone: [facility] Start: 03-19-2021 End: 03-19-2021 Office outpatient visit 15 minutes Emmanuel Sargent PA-C Work Phone: [facility] Start: 11-23-2020 End: 11-23-2020 Office outpatient visit 15 minutes Emmanuel Sargent PA-C Work Phone: [facility] Start: 07-04-2020 End: 07-05-2020 Office outpatient visit 15 minutes Emmanuel Sargent PA-C Work Phone: [facility] Start: 04-18-2020 End: 04-18-2020 Office outpatient visit 25 minutes Emmanuel Sargent PA-C Work Phone: [facility] Start: 04-18-2020 End: 04-18-2020 Preprocedural examination done Emmanuel Sargent PA-C Work Phone: [facility]; [employer]. Start: 03-10-2020 End: 03-14-2020 Medication Emmanuel Sargent PA-C Work Phone: [employer]. Start: 08-31-2019 End: 08-31-2019 Follow-up encounter Emmanuel Sargent PA-C Work Phone: [employer]. Start: 08-30-2019 End: 08-30-2019 Office outpatient visit 25 minutes Emmanuel Sargent PA-C Work Phone: [facility] Start: 12-09-2018 End: 12-09-2018 Telephone follow-up Emmanuel Sargent PA-C Work Phone: [facility] Start: 12-04-2018 End: 12-04-2018 Office outpatient visit 15 minutes Emmanuel Sargent PA-C Work Phone: [facility] Start: 12-03-2018 End: 12-03-2018 Telephone follow-up Emmanuel Sargent PA-C Work Phone: [facility] Start: 11-30-2018 End: 11-30-2018 Orders Emmanuel Sargent PA-C Work Phone: [facility] Start: 11-11-2018 End: 11-11-2018 Telephone follow-up Emmanuel Sargent PA-C Work Phone: [facility] Start: 11-03-2018 End: 11-03-2018 Telephone follow-up Emmanuel Sargent PA-C Work Phone: [facility] Start: 10-29-2018 End: 10-29-2018 Telephone follow-up Emmanuel Sargent PA-C Work Phone: [facility] Start: 09-17-2018 End: 09-17-2018 Historical Summary Emmanuel Sargent PA-C Work Phone: [facility] Start: 09-17-2018 End: 09-18-2018 Patient encounter procedure [place] Ramirezdennis CARVER [employer]. Start: 08-27-2018 End: 08-27-2018 Office outpatient visit 25 minutes Emmanuel Sargent PA-C Work Phone: [employer]. Start: 08-21-2018 End: 08-21-2018 Medication Emmanuel Sargent PA-C Work Phone: [employer]. Start: 08-14-2018 End: 08-14-2018 Orders Emmanuel Sargent PA-C Work Phone: [employer]. Start: 04-09-2018 End: 04-09-2018 Office outpatient visit 15 minutes Emmanuel Sargent PA-C Work Phone: [employer] Start: 07-25-2017 End: 07-25-2017 Medication Emmanuel Sargent PA-C Work Phone: [employer] Start: 07-21-2017 End: 07-21-2017 Office outpatient visit 25 minutes Emmanuel Sargent PA-C Work Phone: [employer] Start: 06-27-2017 Evaluation and manag ement of inpatient [facility] Start: 06-19-2017 Ambulatory [facility] Start: 06-06-2017 Ambulatory [facility] Start: 05-23-2017 Ambulatory [facility] Start: 05-23-2017 Ambulatory [facility] Start: 05-16-2017 Ambulatory [facility] Start: 01-02-2017 End: 01-02-2017 Patient encounter status Emmanuel Sargent PA-C Work Phone: [employer]; [employer]. Start: 01-02-2017 End: 01-02-2017 Periodic preventive med est patient 40-64yrs Emmanuel Sargent PA-C Work Phone: [employer] Start: 10-29-2016 End: 10-29-2016 Orders Emmanuel Sargent PA-C Work Phone: [employer]. Start: 09-20-2016 End: 09-20-2016 Orders Emmanuel Sargent PA-C Work Phone: [employer]. Start: 09-17-2016 End: 09-17-2016 Orders Emmanuel Sargent PA-C Work Phone: [employer] Start: 08-28-2016 End: 08-30-2016 Office outpatient visit 15 minutes Emmanuel Sargent PA-C Work Phone: [employer] Start: 08-09-2016 End: 08-09-2016 Medication Emmanuel Sargent PA-C Work Phone: [employer] Start: 05-02-2016 End: 05-02-2016 Patient encounter procedure Emmanuel Sargent PA-C Work Phone: [employer] Start: 04-10-2016 End: 04-10-2016 Patient encounter procedure Emmanuel Sargent PA-C Work Phone: [employer] Start: 02-05-2016 End: 02-05-2016 Medication Emmanuel Sargent PA-C Work Phone: [employer] Start: 02-05-2016 End: 02-07-2016 Orders Emmanuel Sargent PA-C Work Phone: [employer] Start: 10-16-2015 End: 10-16-2015 Office outpatient visit 15 minutes Emmanuel Sargent PA-C Work Phone: [employer] Start: 09-07-2015 End: 09-07-2015 Medication Emmanuel Sargent PA-C Work Phone: [employer] Start: 07-31-2015 End: 07-31-2015 Office outpatient visit 25 minutes Emmanuel Sargent PA-C Work Phone: [employer] Start: 07-31-2015 End: 07-31-2015 Preprocedural examination done Emmanuel Sargent PA-C Work Phone: [employer]; [employer]. Start: 03-09-2015 End: 03-09-2015 Office outpatient visit 25 minutes Emmanuel Sargent PA-C Work Phone: [employer]. Start: 01-30-2015 End: 01-30-2015 Medication Emmanuel Sargent PA-C Work Phone: [employer]. Start: 01-23-2015 End: 01-23-2015 Office outpatient visit 25 minutes Emmanuel Sargent PA-C Work Phone: [employer] Start: 01-20-2015 End: 01-20-2015 Medication Emmanuel Sargent PA-C Work Phone: [employer]. Start: 09-08-2014 End: 09-08-2014 Office outpatient visit 15 minutes Emmanuel Sargent PA-C Work Phone: [employer]. Start: 05-19-2014 End: 05-19-2014 Orders Emmanuel Sargent PA-C Work Phone: [employer] Start: 05-17-2014 End: 05-17-2014 Office outpatient new 30 minutes Emmanuel Sargent PA-C Work Phone: [employer]. Admission to [facility] [place] Dowd MD Work Phone: [employer]. Patient encounter procedure Jennifer Rodriguez MA [employer]. Patient encounter status Radha Rao [employer]. Procedures Date Procedure Procedure Detail Performing Clinician Start: 11-04-2022 Urinalysis MAKI SCOTT Plan of Treatment Date Care Activity Detail Author Start: 12-22-2018 End: 12-29-2018 Us breast uni real time with image complete Breast US, Unilateral Complete, Right (10907) Date: 22-Dec-2018 [facility] Start: 04-24-2017 End: 10-22-2016 Ct thorax w/o contrast material CT Chest without contrast [facility] Phone: Start: 04-24-2017 End: 10-22-2016 Ct thorax w/o dye CT Chest without contrast [facility] Phone: Start: 04-22-2017 End: 04-22-2017 Appointment Appointment [facility] Phone: Start: 10-22-2016 End: 10-22-2016 Follow Up Appt 6 months Follow Up Appt 6 months [facility] Phone: Start: 10-22-2016 End: 10-22-2016 Appointment Appointment [facility] Phone: Start: 10-22-2016 End: 10-22-2016 Follow Up Appt 6 months Follow Up Appt 6 months [facility] Phone: Start: 09-23-2016 End: 10-07-2016 *CBC with Differential *CBC with Differential [facility] Phone: Start: 09-23-2016 End: 10-07-2016 aPTT *PTT-Partial Thromboplastin Time [facility] Phone: Start: 09-23-2016 End: 09-23-2016 Bacteria culture (unspecified) *CUM - Culture, Miscellaneous [facility] Phone: Start: 09-23-2016 End: 10-07-2016 INR Coag RelTime (PPP) *PT/INR [facility] Phone: Start: 09-23-2016 End: 10-07-2016 *CBC with Differential *CBC with Differential [facility] Phone: Start: 09-23-2016 End: 10-07-2016 aPTT *PTT-Partial Thromboplastin Time [facility] Phone: Start: 09-23-2016 End: 10-07-2016 aPTT Coag time (PPP) *PTT-Partial Thromboplastin Time [facility] Work Phone: Start: 09-23-2016 End: 09-23-2016 Bacteria culture (unspecified) *CUM - Culture, Miscellaneous [facility] Phone: Start: 09-23-2016 End: 10-07-2016 Coagulation factor induced.INR assay in platelet poor plasma *PT/INR [facility] Phone: Start: 09-20-2016 End: 09-20-2016 *MISC - Miscellaneous Lab Test #1 *MISC - Miscellaneous Lab Test #1 [facility] Phone: Start: 09-20-2016 End: 09-22-2016 aPTT *PTT-Partial Thromboplastin Time [facility] Phone: Start: 09-20-2016 End: 09-22-2016 INR Coag RelTime (PPP) *PT/INR [facility] Phone: Start: 09-20-2016 End: 09-20-2016 *MISC - Miscellaneous Lab Test #1 *MISC - Miscellaneous Lab Test #1 [facility] Phone: Start: 09-20-2016 End: 09-22-2016 aPTT *PTT-Partial Thromboplastin Time [facility] Phone: Start: 09-20-2016 End: 09-22-2016 aPTT Coag time (PPP) *PTT-Partial Thromboplastin Time [facility] Phone: Start: 09-20-2016 End: 09-22-2016 Coagulation factor induced.INR assay in platelet poor plasma *PT/INR [facility] Phone: Start: 03-09-2015 Basic metabolic panel calcium total BMP w/ GFR (F) (01201) Start: 09-Mar-2015 9:08 Request [employer] Immunizations Immunization Date Immunization Notes Care Provider Parminder abernathy 12-22-2014 influenza, seasonal, injectable Emmanuel Sargent PA-C Work Phone: [employer] Payers Date Payer Category Payer Unknown [id number] 1955 Unknown [id number] [id number] 1955 Unknown [id number] [id number] 1955 Unknown [id number] [id number] [id number] 1955 Unknown [id number] 2.16.8 [id number] 1955 Unknown [id number] 2.16.8 [id number] 1955 Unknown [id number] [id number] Unknown Social History Date Type Detail Facility Alcohol Use: Alcohol Use: ; None. [facility] [employer] [employer], [employer] Caffeine Use Caffeine Use [facility] [employer]. Tobacco Use: Tobacco Use: ; Never smoker. [employer]. Female [facility] [employer]. Work Phone: Drinks wine [facility] [employer]; [employer]. Work Phone: Occasional alcohol use [facility] [employer]. Work Phone: Never smoked tobacco [facility] [employer]. Work Phone: History and physical note 09-23-2023 Note Date & Type Note Facility 12-14-2022 Note [facility] HISTORY & PHYSICAL/DISCHARGE SUMMARY NAME ACCOUNT SEX AGE ADMIT DISCHARGE PT MED. RECORD# NUMBER DATE DATE TYPE DUKE [id number] Galen Lewis 11/21/22 Luisana Holland [id number] ROOM: 304KS DATE OF : 55 DICTATING PHYSICIAN: Aneta Espinal CHIEF COMPLAINT: Syncope. HISTORY OF PRESENT ILLNESS: The patient is a 67-year-old female with a past medical history significant for coronary artery disease, paroxysmal atrial fibrillation, and hypertension who states she was to see the practitioner at her [employer] office. She was cardioverted on October 22, 2022 and then she developed shingles. She was found to be in atrial fibrillation and goes in and out of atrial fibrillation. She is on amiodarone. She went to see the practitioner, and spironolactone was added, amlodipine was decreased, and she restarted her hydrochlorothiazide. Her understanding was that she should be on all 3 water pills. She does take her amiodarone 200 mg twice daily. She was nauseated. She just had this recent med change. She became nauseated. She noted she was urinating multiple times per hour. She had loose stools x2. She was at work. She did not feel well. She was sitting at her desk. She told people that she needed to go home. She stood up, getting things together to go home, and the next thing she knew shew as on the floor. She had passed out. She had no dizziness prior. No chest pain or shortness of breath. She came to the emergency room. Creatinine was elevated slightly. She was dehydrated. Her blood pressure was on the low side, and she was admitted overnight for observation. Upon evaluation this morning, there was some confusion on her medications from home. She did continue on three diuretics. PAST MEDICAL HISTORY: (1) Paroxysmal atrial fibrillation status post cardioversion. (2) Recent shingles. (3) Hypertension. (4) Coronary artery disease status post myocardial infarction with stent placement. (5) Hard of hearing and wears hearing aids. (6) Morbid obesity with BMI over 45. (7) Statin intolerance. (8) Lung nodules. PAST SURGICAL HISTORY: (1) Cardiac stents. (2) Knee replacements. MEDICATIONS: Current medications: (1) Furosemide 40 mg daily. (2) Metoprolol tartrate 100 mg twice daily. (3) Potassium chloride 20 mEq daily. She recently stopped this. (4) Lisinopril 40 mg daily. (5) Aspirin 81 mg daily. (6) Amiodarone 200 mg twice daily. (7) Calcium citrate 1000 mg daily. (8) Folic acid 2 mg daily. (9) Spironolactone 25 mg daily. (10) Vitamin D 4000 units daily. (11) Xarelto 20 mg daily. (12) Hydrochlorothiazide 12.5 mg daily. (13) Amlodipine 5 mg daily. ALLERGIES: Penicillin and statin. She had severe reaction to Lipitor. She stated her liver shut down. She was started on two other statins, and she was severely ill. Page 1 of 4 JEFFREY WALL History Physical/Discharge Summary JEFFREY WALL :1955 FAMILY HISTORY: There are multiple family members that do have vasovagal syncope. SOCIAL HISTORY: She lives at home. She does not smoke nor drink alcohol. She has a supportive family. REVIEW OF SYSTEMS: She denies any headache, acute visual changes. She did have some nausea, increased urination, loose stools. No abdominal pain. No chest pain. No shortness of breath. No dizziness. The rest of the review of systems were discussed and were negative. PHYSICAL EXAMINATION GENERAL APPEARANCE: This is a well-nourished, well-developed obese female sitting in the chair in no acute distress. She is alert, pleasant, and cooperative. VITAL SIGNS: Blood pressure this morning was 99/58. It improved to 115/73, heart rate 69, respirations 16, temperature 97.9, oxygen saturation 95% on room air, weight 259 pounds with BMI of 45.40. HEENT: Normocephalic and atraumatic. PERRLA. Conjunctivae: Not injected. External pinnae: No lesions. Nares: Patent. Mouth and throat: No erythema. No exudates. NECK: Neck is supple. No JVD. LUNGS: Normal respiratory effort, equal lung expansion, clear to auscultation bilaterally. HEART: Distant heart sounds, regular rate and rhythm. ABDOMEN: Obese, positive bowel sounds, soft and nontender. EXTREMITIES: Revealed trace of edema. NEUROLOGIC: She is alert. She is oriented. Mood, affect, and memory are within normal limits. DIAGNOSTIC DATA: CBC is unremarkable. INR is 1.8. BUN is 19, creatinine 1.30, and last creatinine was 0.95. Glucose is 137, nonfasting. Troponins are negative. TSH is within normal limits. Cholesterol was 203, HDL 53, LDL 126, triglycerides 120. Diagnostic studies: Nuclear stress test with Lexiscan completed with no ischemic changes. CT of the brain without contrast completed in the emergency room with no evidence of Page 2 of 4 JEFFREY WALL History Physical/Discharge Summary JEFFREY WALL :1955 acute abnormality. Carotid ultrasound was completed with no signif (more content not included)... [facility] Summary Purpose Family History Cancer Status:Active Coronary Artery Disease Status:Active Hypertension Status:Active Cancer Status:Active Coronary Artery Disease Status:Active Hypertension Status:Active Advance Directives No Advanced Directives Records FoundNo Advanced Directives Records FoundNo Advanced Directives Records FoundNo Advanced Directives Records FoundNo Advanced Directives Records Found Additional Source Comments INFORMATION SOURCE (unrecogn ized section and content) DATE CREATED AUTHOR AUTHOR'S ORGANIZ ATION 09/03/2020 [facility] DATE CREATED AUTHOR AUTHOR'S ORGANIZ ATION 10/05/2022 [facility] DATE CREATED AUTHOR AUTHOR'S ORGANIZ ATION 10/30/2022 [facility] ([place]) DATE CREATED AUTHOR AUTHOR'S ORGANIZ ATION 12/16/2022 [facility] FOR RECORDS PERTAINING TO PATIENTS WHO ARE OR HAVE BEEN ENROLLED IN A CHEMICAL DEPENDENCY/SUBSTANCEABUSE PROGRAM, SOME INFORMATION MAY BE OMITTED. This clinical summary was aggregated from multiple sources. Caution should be exercised in using it in the provision of clinical care. This summary normalizes information from multiple sources, and as a consequence, information in this document may materially change the coding, format and clinical context of patient data. In addition, data may be omitted in some cases. CLINICAL DECISIONS SHOULD BE BASED ON THE PRIMARY CLINICAL RECORDS. [employer] [facility]. provides no warranty or guarantee of the accuracy or completeness of information in this document.
[2023-05-31 11:09] LABS: QNTFERON TB Mitogen Value > 10.00 IU/mL (.); QNTFERON TB Nil Value 0 IU/mL (.); QNTFERON TB1+ Ag Value 0 IU/mL (.); QNTFERON TB2+ Ag Value 0 IU/mL (.); QNTIFERON TB Positive Criteria Negative (Negative)
== END | disposition home or self-care (01) ==
LOC: MTLAB 14:53
PROVIDERS: Referring Provider Physician Assistant Medical; Visit Provider Physician Assistant Medical
DX: L40.0 Psoriasis vulgaris (principal); Z79.899 Other long term (current) drug therapy
CPT/HCPCS: 36415; 86480

== ENCOUNTER → 2025-03-10 | Outpatient (CLI) | payer MEDICARE, OTHER, SELFPAY ==
[2025-03-15 12:08] LABS: QNTFERON TB Mitogen Value > 10.00 IU/mL (.); QNTFERON TB Nil Value 0.04 IU/mL (.); QNTFERON TB1+ Ag Value 0.03 IU/mL (.); QNTFERON TB2+ Ag Value 0.04 IU/mL (.); QNTIFERON TB Positive Criteria Negative (Negative)
== END | disposition home or self-care (01) ==
LOC: MTLAB 10:45
PROVIDERS: Referring Provider Physician Assistant Medical; Visit Provider Physician Assistant Medical
DX: L40.0 Psoriasis vulgaris (principal)
CPT/HCPCS: 36415; 86480